=== PATIENT | female | born 1985 | race Caucasian/White ===

== ENCOUNTER 2018-12-26 15:47 | Emergency (ER) | payer OTHER ==
[~2018-12-26] VITALS: Ht 167.6 cm; Wt 113.4 kg
--- NOTE | 2018-12-26 17:24 | NUR ---
Pt ambulatory to room 4a, NAD noted at this time.
--- NOTE | 2018-12-26 17:42 | NUR ---
Patient discharged to home in stable conditon. Written and verbal after care instructions given. Patient verbalizes understanding of instructions. ALL BELONGINGS W/ PT. PT SELF-AMBULATED W/O DIFFICULTY. PT D/C W/ PRESCRIPTION.
[2018-12-26 17:44] VITALS: BP 122/90
== END 2018-12-26 17:44 | disposition home or self-care (01) ==
LOC: ER 15:47
DX: J11.1 Influenza due to unidentified influenza virus with other respiratory manifestations (principal)
CPT/HCPCS: A4663